=== PATIENT | female | born 1980 | race Caucasian/White ===

== ENCOUNTER 2016-07-11 10:22 | Day surgery (SDC) | payer BC ==
[2016-07-03 12:53] VITALS: BMI 19.5
[~2016-07-11 10:22] MED LIST: LACTATED RINGERS 1,000 ML IV SCH
[2016-07-11 11:12] VITALS: TEMP 97
[2016-07-11] MEDS ORDERED: LIDOCAINE 1% 20 ML VIAL (10MG/ML) FOR IV START INTRADERMA ONE (11:14)
[2016-07-11] MEDS ORDERED: PROPOFOL 10 MG/ML 20 ML VIAL IV ONE (11:55)
[2016-07-11] MEDS ORDERED: LIDOCAINE 1% INJ 10MG/ML (20 ML MDV) ONE (11:55)
--- NOTE | 2016-07-11 12:10 | P.PCN ---
Date of Procedure: 07/11/16 Procedure(s) Performed: BRIEF HISTORY: Patient is a 35-year-old pleasant right female, scheduled for an elective colonoscopy as a part of evaluation of chronic intermittent diarrhea for the last few months duration. PROCEDURE PERFORMED: Colonoscopy with biopsy. PREOPERATIVE DIAGNOSIS: Chronic intermittent diarrhea. IV sedation per Anesthesia. PROCEDURE: After informed consent was obtained, the patient, was brought into the endoscopy unit. IV conscious sedation was administered by Anesthesia under continuous monitoring. Initially the Olympus CF-160 flexible video colonoscope was then inserted in the rectum, gradually advanced into the cecum without any difficulty. Careful examination was performed as the scope was gradually being withdrawn. Ileocecal valve and the appendiceal orifice were visualized and appeared normal. Prep was excellent. Terminal ileum was intubated and 20 cm visualized and appeared normal. Mucosa of the cecum, ascending colon, transverse colon, descending colon, sigmoid colon, and rectum appeared normal. Random biopsies were done from ascending and descending colon to rule out microscopic/collagenous colitis. Retroflexion was performed in the rectum and no lesions were seen. The patient tolerated the procedure well. IMPRESSION: Normal-appearing colon from rectum to cecum with no evidence of colitis or colorectal neoplasia. RECOMMENDATIONS: Findings of this examination were discussed with the patient as well as a family. She was advised to follow with the biopsy results. She can use [id number] Imodium as needed for her symptoms.
[2016-07-11 12:32] VITALS: BP 112/71; PULSE 74; RESP 18
== END 2016-07-11 13:24 | disposition home or self-care (01) ==
LOC: ORWHC2ENDO 10:22
PROVIDERS: ATTEND Internal Medicine Gastroenterology
DX: R19.7 Diarrhea, unspecified (principal); Z88.0 Allergy status to penicillin; Z88.2 Allergy status to sulfonamides; Z88.8 Allergy status to other drugs, medicaments and biological substances; Z79.3 Long term (current) use of hormonal contraceptives; Z79.899 Other long term (current) drug therapy
CPT/HCPCS: 81025; 88305; 45380; J2001; J2704

== ENCOUNTER → 2018-06-21 | Outpatient (CLI) | payer BC ==
--- NOTE | 2018-06-21 21:23 | US ---
EXAMINATION TYPE: US thyroid st tissue head/neck DATE OF EXAM: 06/21/2018 COMPARISON: NONE CLINICAL HISTORY: 37-year-old female L65.9 Hair Loss, R07.89 Atypical Chest Pain. TECHNIQUE: Multiple sonographic images of the thyroid gland are obtained. FINDINGS: GLAND SIZE: Right Lobe: 3.9 x 1.1 x 1.4cm Overall Parenchyma: homogenous Left Lobe: 3.8 x 0.9 x 1.6 cm Overall Parenchyma: homogeneous Isthmus Thickness: 0.1 cm NODULES RIGHT: # of nodules measured on right: 0 LEFT: # of nodules measured on left: 0 ISTHMUS: # of nodules measured in the isthmus: 0 Bilateral neck scanned, no evidence of lymphadenopathy. IMPRESSION: Normal size gland with normal, homogeneous appearance. No discrete nodules.
== END | disposition home or self-care (01) ==
LOC: RADUSWWP 16:26
PROVIDERS: ATTEND Family Medicine
DX: R07.89 Other chest pain (principal); L65.9 Nonscarring hair loss, unspecified
CPT/HCPCS: 76536

== ENCOUNTER → 2019-12-22 | Outpatient (CLI) | payer BC ==
--- NOTE | 2019-12-23 09:55 | MM ---
Reason for exam: screening (asymptomatic). Last mammogram was performed 3 years and 7 months ago. History: Patient had first child at age 30. Family history of breast cancer in paternal grandmother at age 60 and breast cancer in maternal aunt at age 60. Taking hormonal contraceptives beginning at age 17. Physical Findings: A clinical breast exam by your physician is recommended on an annual basis and results should be correlated with mammographic findings. MG 3D Screening Mammo W/Cad Bilateral CC and MLO view(s) were taken. Prior study comparison: May 16, 2016, bilateral MG 3d screening mammo w/cad. The breast tissue is extremely dense which could obscure a lesion on mammography. No significant changes when compared with prior studies. ASSESSMENT: Benign, BI-RAD 2 RECOMMENDATION: Routine screening mammogram of both breasts in 1 year.
== END | disposition home or self-care (01) ==
LOC: RADMAMWWP 15:39
PROVIDERS: ATTEND Obstetrics & Gynecology
DX: Z12.31 Encounter for screening mammogram for malignant neoplasm of breast (principal)
CPT/HCPCS: 77063; 77067

== ENCOUNTER → 2020-04-17 | Outpatient (CLI) | payer BC | END | disposition home or self-care (01) | LOC: LABWHC1 11:24 | PROVIDERS: ATTEND Obstetrics & Gynecology | DX: Z34.80 Encounter for supervision of other normal pregnancy, unspecified trimester (principal); Z3A.00 Weeks of gestation of pregnancy not specified | CPT/HCPCS: 36415; 84702; 86900; 86901 ==

== ENCOUNTER → 2020-04-19 | Outpatient (CLI) | payer BC | END | disposition home or self-care (01) | LOC: LABWHC1 15:23 | PROVIDERS: ATTEND Obstetrics & Gynecology | DX: Z34.80 Encounter for supervision of other normal pregnancy, unspecified trimester (principal) | CPT/HCPCS: 36415; 84702 ==

== ENCOUNTER → 2020-04-25 | Outpatient (CLI) | payer BC | END | disposition home or self-care (01) | LOC: LABWHC1 11:21 | PROVIDERS: ATTEND Obstetrics & Gynecology | DX: O20.0 Threatened abortion (principal); Z3A.00 Weeks of gestation of pregnancy not specified | CPT/HCPCS: 36415; 84702 ==

== ENCOUNTER 2020-05-01 11:18 | Day surgery (SDC) | payer BC ==
[2020-04-27 14:58] VITALS: BMI 18.8
[~2020-05-01 11:18] MED LIST changes: +DEXAMETHASONE SOD PHOSPHATE 4 MG/ML 1 ML VIAL IV ONE; +HYDROmorphone 0.5 MG/0.5 ML SYRINGE IVP PRN; +Pre Op ABX Message 1 EACH MISC MISCELLANE ONE; +fentaNYL (PF) 50 MCG/ML 2 ML AMP IV PRN
[2020-05-01] MEDS ORDERED: ONDANSETRON 4 MG/2 ML VIAL IVP ONE (11:56)
[2020-05-01] MEDS ORDERED: ONDANSETRON 4 MG/2 ML VIAL ONE (11:57)
[2020-05-01] MEDS ORDERED: MIDAZOLAM 2 MG/2 ML VIAL IVP ONE ×2 (11:57)
[2020-05-01] MEDS ORDERED: SUCCINYLCHOLINE CHLORIDE 100 MG/5 ML SYR IV ONE (12:44)
[2020-05-01] MEDS ORDERED: fentaNYL (PF) 50 MCG/ML 2 ML AMP ONE (12:44)
[2020-05-01] MEDS ORDERED: ACETAMINOPHEN IV (For NPO) 1,000 MG/100 ML VIAL ONE (12:44)
[2020-05-01] MEDS ORDERED: KETOROLAC 15 MG/ML 1 ML VIAL ONE (12:44)
[2020-05-01] MEDS ORDERED: LIDOCAINE 1% INJ 10MG/ML (20 ML MDV) ONE (12:44)
[2020-05-01] MEDS ORDERED: MIDAZOLAM 2 MG/2 ML VIAL ONE (12:44)
[2020-05-01] MEDS ORDERED: PROPOFOL 10 MG/ML 20 ML VIAL IV ONE (12:44)
--- NOTE | 2020-05-01 13:13 | P.OP ---
Date of Procedure: 05/01/20 Preoperative Diagnosis: Missed AB Postoperative Diagnosis: Same Procedure(s) Performed: Suction D&C Anesthesia: DWAYNEA Surgeon: Erik Livingston Estimated Blood Loss (ml): 50 Pathology: other (products of conception) Condition: stable Disposition: same day Operative Findings: Pathology pending Description of Procedure: Patient states the operating suite where a general anesthetic was found be adequate. She was prepped and draped in the normal sterile fashion and placed in the dorsal lithotomy position. Initially a weighted speculum was inserted in the vagina and the anterior lip of cervix identified grasped with an Allis clamp. It was then dilated. Using an 8 curved tip catheter was placed in the uterus suction was then applied and clockwise motion tissue was extruded. 3 passes like this was performed. With tissue and what appeared to be fluid removed gentle sharp curettings were then obtained and then 2 more passes with the suction tip curette were ordered. No bleeding is noted, therefore instruments removed. Sponge, lap, needle counts were all correct 2. Patient was then taken to the recovery room in stable and satisfactory condition. Plan - Discharge Summary Discharge Rx Participant: Yes New Discharge Prescriptions: New Ibuprofen [Motrin] 600 mg PO Q6HR PRN #30 tab PRN Reason: Pain No Action Multivitamins, Thera [Multivitamin (formulary)] 1 tab PO DAILY Ascorbic Acid [Vitamin C] 500 mg PO DAILY Zinc 50 mg PO Q72H Discharge Medication List Ascorbic Acid [Vitamin C] 500 mg PO DAILY 04/27/20 [History] Multivitamins, Thera [Multivitamin (formulary)] 1 tab PO DAILY 04/27/20 [History] Zinc 50 mg PO Q72H 04/27/20 [History] Ibuprofen [Motrin] 600 mg PO Q6HR PRN #30 tab 05/01/20 [Rx] Follow up Appointment(s)/Referral(s): Erik Livingston DO [Doctor of Osteopathic Medicine] - 1 Week Activity/Diet/Wound Care/Special Instructions: No heavy Lifting today, pelvic rest, limit driving, no tub baths for 2 weeks. If any high temperatures, heavy bleeding, or severe pain call my office Discharge Disposition: HOME SELF-CARE
[2020-05-01 13:31] VITALS: TEMP 96.8
[2020-05-01] MEDS ORDERED: LACTATED RINGERS 1,000 ML IV ONE (14:03)
[2020-05-01 14:19] VITALS: RESP 16
[2020-05-01 14:49] VITALS: BP 114/73; PULSE 63
== END 2020-05-01 15:24 | disposition home or self-care (01) ==
LOC: OR 11:18
PROVIDERS: ATTEND Obstetrics & Gynecology
DX: O02.1 Missed abortion (principal); Z88.0 Allergy status to penicillin; Z88.2 Allergy status to sulfonamides; Z88.8 Allergy status to other drugs, medicaments and biological substances; Z90.49 Acquired absence of other specified parts of digestive tract; Z98.890 Other specified postprocedural states
CPT/HCPCS: 88305; 59820; J2250; J1100; J2405; J2001; J3010; J0131; J1885; J0330; J2704

== ENCOUNTER → 2020-12-19 | Outpatient (CLI) | payer BC | END | disposition home or self-care (01) | DX: R10.9 Unspecified abdominal pain (principal) | CPT/HCPCS: 36415; 80053; 82150; 83690; 85025 ==

== ENCOUNTER → 2021-01-21 | Outpatient (CLI) | payer BC ==
--- NOTE | 2021-01-23 09:49 | MM ---
Reason for exam: screening (asymptomatic). Last mammogram was performed 1 year and 1 month ago. History: Patient had first child at age 30. Family history of breast cancer in paternal grandmother at age 60 and breast cancer in maternal aunt at age 60. Taking hormonal contraceptives beginning at age 17. Physical Findings: A clinical breast exam by your physician is recommended on an annual basis and results should be correlated with mammographic findings. MG 3D Screening Mammo W/Cad Bilateral CC and MLO view(s) were taken. Prior study comparison: December 22, 2019, bilateral MG 3d screening mammo w/cad. May 16, 2016, bilateral MG 3d screening mammo w/cad. The breast tissue is heterogeneously dense. This may lower the sensitivity of mammography. No significant changes when compared with prior studies. ASSESSMENT: Benign, BI-RAD 2 RECOMMENDATION: Routine screening mammogram of both breasts in 1 year.
== END | disposition home or self-care (01) ==
LOC: RADMAMWWP 15:53
PROVIDERS: ATTEND Obstetrics & Gynecology
DX: Z12.31 Encounter for screening mammogram for malignant neoplasm of breast (principal)
CPT/HCPCS: 77063; 77067

== ENCOUNTER → 2021-01-22 | Outpatient (CLI) | payer BC ==
--- NOTE | 2021-01-22 18:43 | CT ---
EXAMINATION TYPE: CT abdomen pelvis w con DATE OF EXAM: 01/22/2021 COMPARISON: 05/16/2015 INDICATION: Pelvic and abdominal pain DLP: 617 mGycm, Automated exposure control for dose reduction was used. CONTRAST: 100 mL of Isovue 300. Study performed with Oral Contrast TECHNIQUE: Axial images were obtained from above the diaphragm to the pubic rami in the axial plane a t 5 mm thick sections. Reconstructed images are reviewed on the computer in the coronal plane. FINDINGS: Limited CT sections are obtained the lung bases. The lung bases are clear. CT ABDOMEN: Liver: Normal Spleen: Normal Pancreas: Normal Adrenal glands: The adrenal glands are normal. Gallbladder: Surgically absent Kidneys: No masses are evident. No hydronephrosis is present. No cysts are present. Delayed images were obtained through the kidneys, which remain unremarkable. Aorta: Normal Inferior vena cava: Normal. CT PELVIS: Loops of bowel within the abdomen and pelvis are normal. There are loops of bowel which are incom pletely distended or lack oral contrast limiting their evaluation. Appendix: Not visualized. No inflammatory changes or dilated tubular structures are evident. Urinary bladder: Normal. Genitourinary structures: Uterus is normal. Adnexal regions are clear. No free fluid is within the pe lvis. Osseous structures: No suspicious lytic or sclerotic lesions. IMPRESSIONS: 1. No suspicious acute changes to account for abdomen and pelvic pain
== END | disposition home or self-care (01) ==
LOC: RADCTMAIN 11:30
PROVIDERS: ATTEND Family Medicine
DX: R10.9 Unspecified abdominal pain (principal)
CPT/HCPCS: 74177; Q9967

== ENCOUNTER 2021-07-07 21:38 | Emergency (ER) | payer BC ==
[2021-07-07 21:56] VITALS: TEMP 97.6
--- NOTE | 2021-07-07 21:58 | ED ---
General Adult HPI - General Chief complaint: Chest Pain Stated complaint: Chest Pain, Covid+ Time Seen by Provider: 07/07/21 21:56 Source: patient Mode of arrival: ambulatory Limitations: no limitations - History of Present Illness Initial comments: Patient presents to the ED stating that she tested positive for Covid on a home Covid test that she took 4 days ago, and she states that she has had a dull inferior left-sided chest pain since yesterday. Patient states that her Covid symptoms (cough, congestion, runny nose and body aches) began 6 days ago. Patient states that she is fully vaccinated, but she has not received a booster shot yet. Patient denies trauma or injury, fever or chills, headache, focal neuro deficit, neck/arm/jaw pain, back pain, pleuritic pain, hemoptysis, dyspnea, palpitations, nausea/vomiting/diaphoresis, abdominal pain, dysuria or urinary symptoms, decreased urine output, leg or calf swelling or pain, or any other symptoms or complaints. Patient denies tobacco use. Patient states that she does use oral contraceptive pills. - Related Data Home Medications Medication Instructions Recorded Confirmed Esomeprazole Magnesium [NexIUM] 20 mg PO DAILY PRN 07/07/21 07/07/21 Norethindrone-E.estradiol-Iron 1 tab PO HS 07/07/21 07/07/21 [Priyanka 24 Fe 1 mg-20 Mcg Tablet] Allergies Allergy/AdvReac Type Severity Reaction Status Date / Time pantoprazole sodium Allergy Rash/Hives Verified 07/07/21 23:05 [From Protonix] Penicillins Allergy Unknown Verified 07/07/21 23:05 Childhood Sulfa (Sulfonamide Allergy Anaphylaxis Verified 07/07/21 23:05 Antibiotics) Review of Systems ROS Statement: Those systems with pertinent positive or pertinent negative responses have been documented in the HPI. ROS Other: All systems not noted in ROS Statement are negative. Past Medical History Past Medical History: GERD/Reflux, Skin Disorder Additional Past Medical History / Comment(s): diarrhea, dermatitis on face History of Any Multi-Drug Resistant Organisms: None Reported Past Surgical History: No Surgical Hx Reported Additional Past Surgical History / Comment(s): VARICOSE VEIN STRIPPING RT LEG Past Anesthesia/Blood Transfusion Reactions: No Reported Reaction Additional Past Anesthesia/Blood Transfusion Reaction / Comment(s): "Liver knicked during gallbladder surgery, kept overnight, could not urinate had to be catheterized." Past Psychological History: No Psychological Hx Reported Smoking Status: Never smoker Past Alcohol Use History: None Reported Past Drug Use History: None Reported - Past Family History Mother Family Medical History: No Reported History General Exam Limitations: no limitations General appearance: alert, in no apparent distress Head exam: Present: atraumatic, normocephalic Eye exam: Present: normal appearance, EOMI ENT exam: Present: mucous membranes moist Neck exam: Present: other (Trachea is in midline) Respiratory exam: Present: normal lung sounds bilaterally. Absent: respiratory distress, wheezes, rales, rhonchi, stridor, chest wall tenderness Cardiovascular Exam: Present: regular rate, normal rhythm, normal heart sounds, other (Normal radial pulses bilaterally) GI/Abdominal exam: Present: soft. Absent: distended, tenderness, guarding Extremities exam: Present: other (Negative Homans sign bilaterally). Absent: tenderness, pedal edema, calf tenderness Neurological exam: Present: alert, oriented X3. Absent: motor sensory deficit Psychiatric exam: Present: normal affect, normal mood Skin exam: Present: warm, dry, intact, normal color Course Vital Signs 07/07/21 07/07/21 21:53 23:45 Temperature 97.6 F Pulse Rate 110 H 79 Respiratory 20 16 Rate Blood Pressure 126/72 121/89 O2 Sat by Pulse 99 97 Oximetry - Reevaluation(s) Reevaluation #1: 07/07/21 23:48 Patient denies development of any new symptoms while in the ED. Patient remains alert and breathing comfortably with a normal room air oxygen saturation. Patient is aware of her test results, and she feels comfortable going home at this time. Patient was counseled about Covid and isolation/quarantine precautions. Patient was also counseled about chest pain. Patient was clearly explained return and follow-up instructions, and she was instructed to have a low threshold for return to the emergency department should her symptoms worsen. Patient was also instructed to follow up closely with her primary care provider. Patient feels comfortable with this plan. EKG Findings - EKG Comments: EKG Findings:: Normal sinus rhythm, ventricular rate of 87 bpm, normal TN and QRS intervals, normal QT interval, normal axis, no ST or T-wave abnormality Medical Decision Making - Medical Decision Making Patient's Covid test is positive. The rest of the patient's labs are fairly unremarkable, including a negative troponin and d-dimer. Patient's EKG and chest x-ray are also unremarkable. Patient is not a candidate for IV monoclonal antibody treatment based on current criteria. I do not suspect an emergent medical condition at this time. Will discharge patient home at this time. Patient feels comfortable with this plan. - Lab Data Result diagrams: 07/07/21 22:58 07/07/21 22:58 Lab Results 07/07/21 07/07/21 07/07/21 Range/Units 22:58 22:58 22:58 WBC 5.5 (3.8-10.6) k/uL RBC 4.33 (3.80-5.40) m/uL Hgb 13.0 (11.4-16.0) gm/dL Hct 38.7 (34.0-46.0) % MCV 89.4 (80.0-100.0) fL MCH 29.9 (25.0-35.0) pg MCHC 33.5 (31.0-37.0) g/dL RDW 12.9 (11.5-15.5) % Plt Count 199 (150-450) k/uL MPV 8.7 Neutrophils % 64 % Lymphocytes % 29 % Monocytes % 3 % Eosinophils % 1 % Basophils % 0 % Neutrophils # 3.5 (1.3-7.7) k/uL Lymphocytes # 1.6 (1.0-4.8) k/uL Monocytes # 0.2 (0-1.0) k/uL Eosinophils # 0.1 (0-0.7) k/uL Basophils # 0.0 (0-0.2) k/uL PT 9.4 (9.0-12.0) sec INR 0.8 (<1.2) APTT 25.6 (22.0-30.0) sec D-Dimer 0.36 (<0.60) mg/L FEU Sodium 141 (137-145) mmol/L Potassium 3.9 (3.5-5.1) mmol/L Chloride 108 H (98-107) mmol/L Carbon Dioxide 21 L (22-30) mmol/L Anion Gap 12 mmol/L BUN 15 (7-17) mg/dL Creatinine 0.64 (0.52-1.04) mg/dL Est GFR (CKD-EPI)AfAm >90 (>60 ml/min/1.73 sqM) Est GFR (CKD-EPI)NonAf >90 (>60 ml/min/1.73 sqM) Glucose 99 (74-99) mg/dL Calcium 9.3 (8.4-10.2) mg/dL Magnesium 2.1 (1.6-2.3) mg/dL Total Bilirubin 0.5 (0.2-1.3) mg/dL AST 25 (14-36) U/L ALT 12 (4-34) U/L Alkaline Phosphatase 57 (38-126) U/L Troponin I (0.000-0.034) ng/mL NT-Pro-B Natriuret Pep pg/mL Total Protein 7.8 (6.3-8.2) g/dL Albumin 4.4 (3.5-5.0) g/dL HCG, Qual Not Detected Coronavirus (PCR) (Not Detectd) 07/07/21 07/07/21 07/07/21 Range/Units 22:58 22:58 23:01 WBC (3.8-10.6) k/uL RBC (3.80-5.40) m/uL Hgb (11.4-16.0) gm/dL Hct (34.0-46.0) % MCV (80.0-100.0) fL MCH (25.0-35.0) pg MCHC (31.0-37.0) g/dL RDW (11.5-15.5) % Plt Count (150-450) k/uL MPV Neutrophils % % Lymphocytes % % Monocytes % % Eosinophils % % Basophils % % Neutrophils # (1.3-7.7) k/uL Lymphocytes # (1.0-4.8) k/uL Monocytes # (0-1.0) k/uL Eosinophils # (0-0.7) k/uL Basophils # (0-0.2) k/uL PT (9.0-12.0) sec INR (<1.2) APTT (22.0-30.0) sec D-Dimer (<0.60) mg/L FEU Sodium (137-145) mmol/L Potassium (3.5-5.1) mmol/L Chloride (98-107) mmol/L Carbon Dioxide (22-30) mmol/L Anion Gap mmol/L BUN (7-17) mg/dL Creatinine (0.52-1.04) mg/dL Est GFR (CKD-EPI)AfAm (>60 ml/min/1.73 sqM) Est GFR (CKD-EPI)NonAf (>60 ml/min/1.73 sqM) Glucose (74-99) mg/dL Calcium (8.4-10.2) mg/dL Magnesium (1.6-2.3) mg/dL Total Bilirubin (0.2-1.3) mg/dL AST (14-36) U/L ALT (4-34) U/L Alkaline Phosphatase (38-126) U/L Troponin I <0.012 (0.000-0.034) ng/mL NT-Pro-B Natriuret Pep 118 pg/mL Total Protein (6.3-8.2) g/dL Albumin (3.5-5.0) g/dL HCG, Qual Coronavirus (PCR) Detected A (Not Detectd) - Radiology Data Chest x-ray: Normal chest. Disposition Clinical Impression: Chest pain, COVID-19 Disposition: HOME SELF-CARE Condition: Stable Instructions (If sedation given, give patient instructions): Coronavirus Disease 2019 (COVID-19), Chest Pain (ED) Additional Instructions: Return to the ER immediately should you develop new or worsening pain, shortness of breath, feeling dizzy or faint, or new or worsening symptoms. Follow up closely with your primary care provider. Is patient prescribed a controlled substance at d/c from ED?: No Referrals: Orlando Mukherjee DO [Primary Care Provider] - 1-2 days Time of Disposition: 23:48
--- NOTE | 2021-07-07 22:42 | XR ---
EXAMINATION TYPE: XR chest 2V DATE OF EXAM: 07/07/2021 COMPARISON: NONE HISTORY: Chest pain TECHNIQUE: 2 view FINDINGS: Heart and mediastinum are normal. Lungs are clear. Diaphragm is normal. Bony thorax appears normal. There are chest leads. IMPRESSION: Normal chest.
[2021-07-07 23:08] LABS: Basophils % (A) 0 %; Eosinophils # (A) 0.1 k/uL (0-0.7); Eosinophils % (A) 1 %; HCT 38.7 % (34.0-46.0); Lymphocytes # (A) 1.6 k/uL (1.0-4.8); Lymphocytes % (A) 29 %; MCH 29.9 pg (25.0-35.0); MCHC 33.5 g/dL (31.0-37.0); MCV 89.4 fL (80.0-100.0); Mean Platelet Volume 8.7; Monocytes # (A) 0.2 k/uL (0-1.0); Monocytes % (A) 3 %; Neutrophils # (A) 3.5 k/uL (1.3-7.7); Neutrophils % (A) 64 %; Platelet Count 199 k/uL (150-450); RBC 4.33 m/uL (3.80-5.40); RDW 12.9 % (11.5-15.5); WBC 5.5 k/uL (3.8-10.6)
[2021-07-07 23:24] LABS: INR 0.8 (<1.2); Partial Thromboplastin Time 25.6 sec (22.0-30.0); Prothrombin Time 9.4 sec (9.0-12.0)
[2021-07-07 23:35] LABS: ALT 12 U/L (4-34); AST 25 U/L (14-36); African American GFR (CKD) >90 (>60 ml/min/1.73 sqM); Albumin 4.4 g/dL (3.5-5.0); Alkaline Phosphatase 57 U/L (38-126); Anion Gap 12 mmol/L; Blood Urea Nitrogen 15 mg/dL (7-17); Calcium 9.3 mg/dL (8.4-10.2); Carbon Dioxide 21 mmol/L (22-30); Chloride 108 mmol/L (98-107); Glucose 99 mg/dL (74-99); Magnesium 2.1 mg/dL (1.6-2.3); Non-African American GFR(CKD) >90 (>60 ml/min/1.73 sqM); Potassium 3.9 mmol/L (3.5-5.1); Sodium 141 mmol/L (137-145); Total Bilirubin 0.5 mg/dL (0.2-1.3); Total Protein 7.8 g/dL (6.3-8.2)
[2021-07-07 23:38] LABS: HCG,Qualitative Serum Not Detected
[2021-07-07 23:46] VITALS: BP 121/89; PULSE 79; RESP 16
== END 2021-07-08 00:03 | disposition home or self-care (01) ==
LOC: EC 21:38
DX: U07.1 COVID-19 (principal); Z88.8 Allergy status to other drugs, medicaments and biological substances; Z88.0 Allergy status to penicillin; Z88.2 Allergy status to sulfonamides; K21.9 Gastro-esophageal reflux disease without esophagitis; Z79.83 Long term (current) use of bisphosphonates
CPT/HCPCS: 36415; 71046; 80053; 83735; 83880; 84484; 84703; 85025; 85379; 85610; 85730; 87635; 93005

== ENCOUNTER → 2021-11-15 | Outpatient (CLI) | payer BC ==
--- NOTE | 2021-11-15 13:13 | CA ---
Exercise Stress Test Report Name: Elsa Madsen Exam Date: 11/15/2021 11:11 Exam Location: [place] Stress Ht (in): 67 Wt (lb): 130 BSA: 1.68 Ordering Phys: Orlando Mukherjee DO Referring Phys: BARB, Technologist: PAU,, Age: 41 Gender: F : 1980 Procedure CPT: Indications: R07.9 CHEST PAIN ICD-10 Codes: Patient History: CHEST PAIN Medications: CONTROL Meds past 24 hrs: Pretest Chest Pain: STRESS TEST [place] Protocol Exercise Duration (min:sec): 10:[address] Depressions (mm): Angina Score: Longoria Score: Resting HR (bpm): 91 Peak HR (bpm): 152 Resting BP (mmHg): 121 / 81 Peak BP (mmHg): 146 / 103 MPHR: 178 Target HR: 151 % MPHR: 85 METS: 12.1 Total Dose: Peak Dose: Atropine: Double Product: 61085 BP Response: Stress Termination: TARGET HR REACHED/MAX EXERTION Stress Symptoms: NO SYMPTOMS Stress Summary: ECG ANALYSIS Resting ECG: Stress ECG: CONCLUSIONS Dr. Haroldo Summers DO (Electronically Signed) Final Date: 15 November 2021 13:12
--- NOTE | 2021-11-15 17:54 | CA ---
Transthoracic Echo Report Name: Elsa Madsen Age: 41 Gender: F : 1980 Exam Date: 11/15/2021 11:45 Exam Location: [place] Echo Ht (in): 67 Wt (lb): 130 Ordering Physician: Orlando Mukherjee DO Attending/Referring Phys: Maintenance Director Phoebe Lopez RDCS Procedure CPT: Indications: R07.9 CHEST PAIN Cardiac Hx: Technical Quality: Good Contrast 1: Total Dose (mL): Contrast 2: Total Dose (mL): MEASUREMENTS (Male / Female) Normal Values 2D ECHO LV Diastolic Diameter PLAX 3.8 cm 4.2 - 5.9 / 3.9 - 5.3 cm LV Systolic Diameter PLAX 2.3 cm IVS Diastolic Thickness 0.8 cm 0.6 - 1.0 / 0.6 - 0.9 cm LVPW Diastolic Thickness 0.9 cm 0.6 - 1.0 / 0.6 - 0.9 cm LV Relative Wall Thickness 0.5 RV Internal Dim ED PLAX 3.3 cm LA Systolic Diameter LX 2.6 cm 3.0 - 4.0 / 2.7 - 3.8 cm M-MODE Aortic Root Diameter MM 3.2 cm MV E Point Septal Separation 0.5 cm AV Cusp Separation MM 2.0 cm DOPPLER AV Peak Velocity 130.1 cm/s AV Peak Gradient 6.8 mmHg MV Area PHT 2.7 cm??? Mitral E Point Velocity 96.1 cm/s Mitral A Point Velocity 58.3 cm/s Mitral E to A Ratio 1.6 MV Deceleration Time 280.2 ms MV E' Velocity 10.1 cm/s Mitral E to MV E' Ratio 9.5 TR Peak Velocity 207.8 cm/s TR Peak Gradient 17.3 mmHg Right Ventricular Systolic Press 22.3 mmHg FINDINGS Left Ventricle Left ventricular ejection fraction is estimated at 60-65 %. Left ventricular cavity size normal. Left ventricular wall thickness normal. Right Ventricle Normal right ventricular size. Right ventricular systolic pressure within normal limits. Right Atrium Normal right atrial size. Left Atrium Normal left atrial size. No evidence for an atrial septal defect. Mitral Valve Mild mitral regurgitation. Aortic Valve Trileaflet aortic valve. No aortic valve stenosis or regurgitation. Tricuspid Valve Mild tricuspid regurgitation. Pulmonic Valve Structurally normal pulmonic valve. Pericardium Normal pericardium. Aorta Normal size aortic root and proximal ascending aorta. CONCLUSIONS Normal left ventricular ejection fraction 60-65% Mild mitral regurgitation RVSP 22 Mild tricuspid regurgitation No pericardial effusion Previewed by: Dr. Haroldo Summers DO (Electronically Signed) Final Date: 15 November 2021 17:53
== END | disposition home or self-care (01) ==
LOC: RADECHMAIN 10:45
PROVIDERS: ATTEND Family Medicine
DX: I34.0 Nonrheumatic mitral (valve) insufficiency (principal); I07.1 Rheumatic tricuspid insufficiency; R07.9 Chest pain, unspecified
CPT/HCPCS: 93017; 93306

== ENCOUNTER → 2022-01-22 | Outpatient (CLI) | payer BC ==
--- NOTE | 2022-01-23 09:12 | MM ---
Reason for Exam: Screening (asymptomatic). Last screening mammogram was performed 12 month(s) ago. Patient History: Menarche at age 14. First Full-Term at age 30. Late child-bearing (after 30). Currently using Hormonal Contraceptives, starting at age 17. Paternal grandmother had breast cancer, age 60. Maternal aunt had breast cancer, age 60. Risk Values: No 5 year model risk: 0.8%. NCI Lifetime model risk: 12.2%. Prior Study Comparison: 05/16/2016 Bilateral Screening Mammogram, [facility]. 12/22/2019 Bilateral Screening Mammogram, [facility]. 01/21/2021 Bilateral Screening Mammogram, [facility]. Tissue Density: The breast tissue is heterogeneously dense. This may lower the sensitivity of mammography. Findings: Analyzed By CAD. There is no suspicious group of microcalcifications or new suspicious mass in either breast. Overall Assessment: Negative, BI-RAD 1 Management: Screening Mammogram of both breasts in 1 year. A clinical breast exam by your physician is recommended on an annual basis and results should be correlated with mammographic findings. Electronically signed and approved by: Allan Gilman DO
== END | disposition home or self-care (01) ==
LOC: RADMAMWWP 07:20
PROVIDERS: ATTEND Obstetrics & Gynecology
DX: Z12.31 Encounter for screening mammogram for malignant neoplasm of breast (principal)
CPT/HCPCS: 77063; 77067

== ENCOUNTER → 2023-01-23 | Outpatient (CLI) | payer BC ==
--- NOTE | 2023-01-26 09:45 | MM ---
Reason for Exam: Screening (asymptomatic). Last screening mammogram was performed 12 month(s) ago. Patient History: Menarche at age 14. First Full-Term at age 30. Late child-bearing (after 30). Premenopausal. Patient has history of breast feeding. Currently using Hormonal Contraceptives, starting at age 17. Paternal grandmother had breast cancer, age 60. Maternal aunt had breast cancer, age 60. Last menstrual period: 01/08/2023 Risk Values: No 5 year model risk: 0.9%. NCI Lifetime model risk: 12.1%. Prior Study Comparison: 05/16/2016 Bilateral Screening Mammogram, [facility]. 12/22/2019 Bilateral Screening Mammogram, [facility]. 01/21/2021 Bilateral Screening Mammogram, [facility]. 01/22/2022 Bilateral MG 3D screening mammo w/cad, [facility]. Tissue Density: The breast tissue is heterogeneously dense. This may lower the sensitivity of mammography. Findings: Analyzed By CAD. There is no suspicious group of microcalcifications or new suspicious mass in either breast. Overall Assessment: Negative, BI-RAD 1 Management: Screening Mammogram of both breasts in [address] [facility] will attempt to contact patient to return for supplemental views and ultrasound if indicated. Patient should continue monthly self-breast exams. A clinical breast exam by your physician is recommended on an annual basis. This exam should not preclude additional follow-up of suspicious palpable abnormalities. Note on No scores and lifetime risk: 1. A No score greater than 3% is considered moderate risk. If this is the case, consider specialist referral to assess eligibility for a risk reducing agent. 2. If overall lifetime risk for the development of breast cancer is 20% or higher, the patient may qualify for future screening with alternating mammogram and breast MRI. Electronically signed and approved by: Allan Gilman DO
== END | disposition home or self-care (01) ==
LOC: RADMAMWWP 07:14
PROVIDERS: ATTEND Obstetrics & Gynecology
DX: Z12.31 Encounter for screening mammogram for malignant neoplasm of breast (principal); Z80.3 Family history of malignant neoplasm of breast
CPT/HCPCS: 77063; 77067

== ENCOUNTER → 2023-05-18 | Outpatient (CLI) | payer BC ==
--- NOTE | 2023-05-18 09:25 | XR ---
EXAMINATION TYPE: XR cervical spine comp DATE OF EXAM: 05/18/2023 COMPARISON: NONE HISTORY: pain TECHNIQUE: Four views are submitted. FINDINGS: The odontoid is intact. There are no compression deformities. The prevertebral soft tissue structur es are within normal limits. A grade 1 anterolisthesis C4-C5. Degenerative disc disease C5-C6. IMPRESSION: 1. Straightening of the cervical spine with mild to moderate degenerative disc disease C5-C6. 2. Grade 1 anterolisthesis C4-C5. Recommend consideration for MRI.
--- NOTE | 2023-05-18 09:58 | XR ---
EXAMINATION TYPE: XR shoulder complete LT DATE OF EXAM: 05/18/2023 COMPARISON: NONE HISTORY: Pain TECHNIQUE: Three views are submitted. FINDINGS: The osseous structures are intact. There is no acute fracture or dislocation. The AC joint is dista nce maintained. Mild hypertrophic change. IMPRESSION: 1. Mild AC joint arthropathy..
== END | disposition home or self-care (01) ==
LOC: RADXRMAIN 08:34
PROVIDERS: ATTEND Family Medicine
DX: M50.322 Other cervical disc degeneration at C5-C6 level (principal); M43.12 Spondylolisthesis, cervical region; M19.012 Primary osteoarthritis, left shoulder; R20.2 Paresthesia of skin
CPT/HCPCS: 72050

== ENCOUNTER → 2023-06-19 | Outpatient (CLI) | payer BC ==
--- NOTE | 2023-06-20 14:36 | MR ---
EXAMINATION TYPE: MR cervical spine wo con DATE OF EXAM: 06/19/2023 COMPARISON: None HISTORY: Neck pain, left shoulder/arm tingling. CONTRAST: Performed utilizing 0 mL intravenous Gadavist gadolinium contrast. TECHNIQUE: Multiplanar multiecho imaging on a 3.0 Debora magnet is performed through the cervical spin e. FINDINGS: The craniovertebral junction is normal. Vertebral body alignment straightened. C7-T1: No focal disc herniation or significant disc bulge is evident. No spinal canal stenosis or n eural foraminal stenosis is present. C6-7: Mild disc bulge has anterior thecal sac compression. The sagittal plane subligamentous disc ext ension is evident. No cord contact is evident. No spinal canal stenosis is present. Neural foramen ar e patent.. C5-6: Broad-based disc bulge has moderate anterior thecal sac flattening. No cord contact is evident. No spinal canal stenosis is present. Neural foramen are patent.. C4-5: No focal disc herniation or significant disc bulge is evident. No spinal canal stenosis or josie ral foraminal stenosis is present. C3-4: No focal disc herniation or significant disc bulge is evident. No spinal canal stenosis or josie ral foraminal stenosis is present. C2-3: No focal disc herniation or significant disc bulge is evident. No spinal canal stenosis or josie ral foraminal stenosis is present. IMPRESSION: 1. Subligamentous disc herniation C6-7 with mild anterior thecal sac flattening. No cord contact or s kedar canal stenosis. 2. Broad-based disc bulging C5-6 with moderate anterior thecal sac compression. No spinal canal steno sis or cord contact.
== END | disposition home or self-care (01) ==
LOC: RADMRIMAIN 11:32
PROVIDERS: ATTEND Family Medicine
DX: M50.222 Other cervical disc displacement at C5-C6 level (principal)
CPT/HCPCS: 72141

== ENCOUNTER → 2023-09-08 | Outpatient (CLI) | payer BC ==
--- NOTE | 2023-09-08 19:20 | US ---
EXAMINATION TYPE: US thyroid st tissue head/neck DATE OF EXAM: 09/08/2023 COMPARISON: NONE CLINICAL INDICATION: Female, 42 years old with history of R22 LOCALIZED SWELLING, MASS AND LUMP, HEAD ; Forehead lump x few years ? from hitting head on car door TECHNIQUE: FINDINGS: Hyperechoic area with posterior shadowing at area of concern = 0.4 x 0.1 x 0.4 cm. Conside r calcified hematoma. CT may be useful for additional evaluation. IMPRESSION: Hypoechoic area with some posterior shadowing at the area of concern. Old hematoma could be within the differential. If additional workup would be of benefit, consider CT brain. MRI without contrast as an alternative.
== END | disposition home or self-care (01) ==
LOC: RADUSWWP 14:02
PROVIDERS: ATTEND Family Medicine
DX: R22.0 Localized swelling, mass and lump, head (principal)
CPT/HCPCS: 76536

== ENCOUNTER → 2023-09-25 | Outpatient (CLI) | payer BC ==
--- NOTE | 2023-09-25 18:22 | CT ---
EXAMINATION TYPE: CT brain wo/w con CT DLP: 2273 mGycm, Automated exposure control for dose reduction was used. DATE OF EXAM: 09/25/2023 5:07 PM COMPARISON: None. CLINICAL INDICATION:Female, 43 years old with history of M79.81 NONTRAUMATIC HEMATOMA OF SOFT TISSUE; Lump on frontal bone x 8 years TECHNIQUE: Axial CT images of the brain were obtained with coronal and sagittal reformats created and reviewed. Contrast used:100 cc mL of Isovue 300 without and with IV Contrast, Oral contrast used: none. FINDINGS: Extra-axial spaces: No abnormal extra-axial fluid collections. Ventricular system: Within normal limits Cerebral parenchyma: No acute intraparenchymal hemorrhage or mass effect. The harper-white junction is well differentiated. No abnormal enhancement is seen after the administration of intravenous contras t. Cerebellum: Unremarkable. Mass effect: No evidence of midline shift. Intracranial vasculature: unremarkable Soft tissues: Just left of midline is a area of bony prominence which is thought to be arising from t he skull measuring 3 mm. Calvarium/osseous structures: No depressed skull fracture. Paranasal sinuses and mastoid air cells: Clear. Visualized orbits: Orbital contents are intact. IMPRESSION: 1. No acute intracranial process. 2. Small osseous protuberance of the left frontal bone measuring 3 mm. No suspicious masses.
== END | disposition home or self-care (01) ==
LOC: RADCTMAIN 15:54
PROVIDERS: ATTEND Family Medicine
DX: M79.81 Nontraumatic hematoma of soft tissue (principal)
CPT/HCPCS: 70470; Q9967

== ENCOUNTER 2023-10-20 21:46 | Emergency (ER) | payer BC ==
[2023-10-20 22:01] VITALS: RESP 18
--- NOTE | 2023-10-20 22:52 | ED ---
Extremity Problem HPI - General Chief complaint: Extremity Problem,Nontraumatic Stated complaint: R Leg Tingling Source: patient, RN notes reviewed, old records reviewed Mode of arrival: ambulatory Limitations: no limitations - History of Present Illness Initial comments: QN-43 female to the ER for evaluation of right calf rash, she feels like she is not getting good pulled blood flow to the right foot right thigh does have a rash so that was initially concentrated but does feel like it spreading out currently. No pain there no itching, no recent exposure or other complaints. This is a 43-year-old female to ER for evaluation of rash, rash to right calf. No prior history of similar symptoms no traumatic injury noted. No fevers. No pain in the foot or discoloration, MD Complaint: extremity pain, extremity swelling -: days(s) Location: right -: Yes myalgia, Yes arthralgia Radiation: none Severity scale (1-10): 4 Consistency: constant Improves with: nothing Worsens with: nothing Associated Symptoms: denies other symptoms - Related Data Home Medications Medication Instructions Recorded Confirmed Esomeprazole Magnesium [NexIUM] 20 mg PO DAILY PRN 07/07/21 07/07/21 norethindrone-e.estradioL-iron 1 tab PO HS 07/07/21 07/07/21 [Priyanka 24 Fe 1 mg-20 Mcg Tablet] Allergies Allergy/AdvReac Type Severity Reaction Status Date / Time pantoprazole sodium Allergy Rash/Hives Verified 10/20/23 21:50 [From Protonix] Penicillins Allergy Unknown Verified 10/20/23 21:50 Childhood Sulfa (Sulfonamide Allergy Anaphylaxis Verified 10/20/23 21:50 Antibiotics) Review of Systems ROS Statement: Those systems with pertinent positive or pertinent negative responses have been documented in the HPI. ROS Other: All systems not noted in ROS Statement are negative. Past Medical History Past Medical History: GERD/Reflux, Skin Disorder Additional Past Medical History / Comment(s): diarrhea, dermatitis on face History of Any Multi-Drug Resistant Organisms: None Reported Past Surgical History: No Surgical Hx Reported Additional Past Surgical History / Comment(s): VARICOSE VEIN STRIPPING RT LEG Past Anesthesia/Blood Transfusion Reactions: No Reported Reaction Additional Past Anesthesia/Blood Transfusion Reaction / Comment(s): "Liver knicked during gallbladder surgery, kept overnight, could not urinate had to be catheterized." Past Psychological History: No Psychological Hx Reported Smoking Status: Never smoker Past Alcohol Use History: None Reported Past Drug Use History: None Reported - Past Family History Mother Family Medical History: No Reported History General Exam Limitations: no limitations General appearance: alert, in no apparent distress Head exam: Present: atraumatic, normocephalic, normal inspection Eye exam: Present: normal appearance, PERRL, EOMI. Absent: scleral icterus, conjunctival injection, periorbital swelling ENT exam: Present: normal exam, mucous membranes moist Neck exam: Present: normal inspection. Absent: tenderness, meningismus, lymphadenopathy Respiratory exam: Present: normal lung sounds bilaterally. Absent: respiratory distress, wheezes, rales, rhonchi, stridor Cardiovascular Exam: Present: regular rate, normal rhythm, normal heart sounds. Absent: systolic murmur, diastolic murmur, rubs, gallop, clicks GI/Abdominal exam: Present: soft, normal bowel sounds. Absent: distended, tenderness, guarding, rebound, rigid Extremities exam: Present: normal inspection, full ROM, normal capillary refill. Absent: tenderness, pedal edema, joint swelling, calf tenderness Back exam: Present: normal inspection Neurological exam: Present: alert, oriented X3, CN II-XII intact Psychiatric exam: Present: normal affect, normal mood Skin exam: Present: warm, dry, intact, normal color. Absent: rash Course Vital Signs 10/20/23 10/21/23 21:48 01:41 Temperature 98.6 F 98.8 F Pulse Rate 101 H 69 Respiratory 18 18 Rate Blood Pressure 136/78 106/71 O2 Sat by Pulse 98 97 Oximetry - Reevaluation(s) Reevaluation #1: 10/20/23 22:51 QN completed [address] myself Dr Sun Reevaluation #2: Patient symptoms are improved here in the ER Reevaluation #3: Patient informed of results questions answered Reevaluation #4: Was pt. sent in by a medical professional or institution (, PA, AEROTRIANGULATION SPECIALIST, urgent care, hospital, or [facility]...) When possible be specific @ -no Did you speak to anyone other than the patient for history (EMS, parent, family, police, friend...)? What history was obtained from this source @ -no Did you review nursing and triage notes (agree or disagree)? Why? @ -agree Are old charts reviewed (outside hosp., previous admission, EMS record, old EKG, old radiological studies, urgent care reports/EKG's, [facility] records)? Report findings @ -yes Differential Diagnosis (chest pain, altered mental status, abdominal pain women, abdominal pain men, vaginal bleeding, weakness, fever, dyspnea, syncope, he adache, dizziness, GI bleed, back pain, seizure, CVA, palpatations, mental health, musculoskeletal)? @ -prior EKG interpreted by me (3pts min.). @ -no X-rays interpreted by me (1pt min.). @ -no CT interpreted by me (1pt min.). @ -no U/S interpreted by me (1pt. min.). @ -yes negative for acute disease What testing was considered but not performed or refused? (CT, X-rays, U/S, labs)? Why? @ -none What meds were considered but not given or refused? Why? @ -none Did you discuss the management of the patient with other professionals (professionals i.e. , PA, AEROTRIANGULATION SPECIALIST, lab, RT, psych nurse, child protective services social worker, franchise manager, teacher, forest fire management officer, nurse case management)? Give summary @ -no Was smoking cessation discussed for >3mins.? @ -no Was critical care preformed (if so, how long)? @ -no Were there social determinants of health that impacted care today? How? (Homelessness, low income, unemployed, alcoholism, drug addiction, transportation, low edu. Level, literacy, decrease access to med. care, correction, rehab)? @ -none Was there de-escalation of care discussed even if they declined (Discuss DNR or withdrawal of care, Hospice)? DNR status @ -no What co-morbidities impacted this encounter? (DM, HTN, Smoking, COPD, CAD, Cancer, CVA, ARF, Chemo, Hep., AIDS, mental health diagnosis, sleep apnea, morbid obesity)? @ -none Was patient admitted / discharged? Hospital course, mention meds given and r oute, prescriptions, significant lab abnormalities, going to OR and other pertinent info. @ - 43 female with lower extremity vasculitis and pain. No acute cause of symptoms found here in the ER, patient has normal pulse no significant distress and can be discharged home Discharge Undiagnosed new problem with uncertain prognosis? @ -no Drug Therapy requiring intensive monitoring for toxicity (Heparin, Nitro, Insulin, Cardizem)? @ -no Were any procedures done? @ -no Diagnosis/symptom? @ -Leg pain, vasculitis Acute, or Chronic, or Acute on Chronic? @ -Acute Uncomplicated (without systemic symptoms) or Complicated (systemic symptoms)? @ -Complicated Side effects of treatment? @ -no Exacerbation, Progression, or Severe Exacerbation? @ -exacerbation Poses a threat to life or bodily function? How? (Chest pain, [place], [place], pneumonia, PE, COPD, DKA, ARF, appy, cholecystitis, CVA, Diverticulitis, Homicidal, Suicidal, threat to staff... 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 No acute cause of symptoms found here in the ER, patient has normal pulse no significant distress and can be discharged home - Radiology Data Radiology results: report reviewed (Ultrasound venous duplex is negative for DVT ), image reviewed Disposition Clinical Impression: Leg pain, Vasculitis Disposition: HOME SELF-CARE Condition: Good Instructions (If sedation given, give patient instructions): Urticaria (ED), Acute Rash (ED), Dermatitis (ED) Is patient prescribed a controlled substance at d/c from ED?: No Referrals: Orlando Mukherjee DO [Primary Care Provider] - 1-2 days Time of Disposition: 01:20
--- NOTE | 2023-10-20 23:58 | US ---
EXAM: US Duplex Right Lower Extremity Veins CLINICAL HISTORY: US Reason: dvt TECHNIQUE: Real-time duplex ultrasound scan of the right lower extremity veins integrating B-mode two-dimensional vascular structure, Doppler spectral analysis, color flow Doppler imaging and compression. COMPARISON: No relevant prior studies available. FINDINGS: Deep veins: Unremarkable. No DVT in the visualized common femoral, femoral, proximal deep femoral or popliteal veins. The veins demonstrate normal color flow, are normally compressible, with normal phasic flow and/or augmentation response. Superficial veins: Unremarkable. No thrombus in the visualized great saphenous vein. Soft tissues: No acute findings. No popliteal cyst. IMPRESSION: Negative right lower extremity duplex venous ultrasound. No evidence of DVT.
[2023-10-21 02:31] VITALS: BP 106/71; PULSE 69; TEMP 98.8
== END 2023-10-21 01:41 | disposition home or self-care (01) ==
LOC: EC 21:46
DX: M79.604 Pain in right leg (principal); I77.6 Arteritis, unspecified; Z88.2 Allergy status to sulfonamides; Z88.8 Allergy status to other drugs, medicaments and biological substances
CPT/HCPCS: 99283

== ENCOUNTER → 2024-02-03 | Outpatient (CLI) | payer BC ==
--- NOTE | 2024-02-22 09:53 | MM ---
Reason for Exam: Screening (asymptomatic). Last screening mammogram was performed 12 month(s) ago. Patient History: Menarche at age 14. First Full-Term at age 30. Late child-bearing (after 30). Premenopausal. Patient has history of breast feeding. Currently using Hormonal Contraceptives, starting at age 17. Paternal grandmother had breast cancer, age 60. Maternal aunt had breast cancer, age 60. Risk Values: No 5 year model risk: 1.0%. NCI Lifetime model risk: 12.0%. Prior Study Comparison: 05/16/2016 Bilateral Screening Mammogram, [facility]. 12/22/2019 Bilateral Screening Mammogram, [facility]. 01/21/2021 Bilateral Screening Mammogram, [facility]. 01/22/2022 Bilateral MG 3D screening mammo w/cad, [facility]. 01/23/2023 Bilateral MG 3D screening mammo w/cad, [facility]. Tissue Density: The breasts are heterogeneously dense, which may obscure small masses. Findings: Analyzed By CAD. There is no suspicious group of microcalcifications or new suspicious mass in either breast. Overall Assessment: Negative, BI-RAD 1 Management: Screening Mammogram of both breasts in 1 year. . Patient should continue monthly self-breast exams. A clinical breast exam by your physician is recommended on an annual basis. This exam should not preclude additional follow-up of suspicious palpable abnormalities. Note on No scores and lifetime risk: 1. A No score greater than 3% is considered moderate risk. If this is the case, consider specialist referral to assess eligibility for a risk reducing agent. 2. If overall lifetime risk for the development of breast cancer is 20% or higher, the patient may qualify for future screening with alternating mammogram and breast MRI. Electronically signed and approved by: Bruce Sheffield M.D. Radiologis
== END | disposition home or self-care (01) ==
LOC: RADMAMWWP 18:05
PROVIDERS: ATTEND Obstetrics & Gynecology
DX: Z12.31 Encounter for screening mammogram for malignant neoplasm of breast (principal); R92.333 Mammographic heterogeneous density, bilateral breasts; Z80.3 Family history of malignant neoplasm of breast
CPT/HCPCS: 77063; 77067